=== PATIENT | female | born 1955 | race Hispanic/Latino ===

== ENCOUNTER 2017-09-27 02:06 | Emergency (ER) | payer OTHER ==
[2017-09-27] MEDS ORDERED: Naproxen 500 MG TAB ONE (03:21)
[2017-09-27] MEDS ORDERED: Ondansetron ODT 4 MG TAB ONE (03:21)
[2017-09-27] MEDS ORDERED: Benzonatate 100 MG CAP ONE (03:21)
[2017-09-27] MEDS ORDERED: AMOXicillin 250 MG CAP ONE (03:21)
[2017-09-27] MEDS ORDERED: HYDROcodone/Acetaminophen 10/325 mg Tablet ONE (03:21)
[2017-09-27] MEDS ORDERED: Dexamethasone 4 MG TAB ONE (03:22)
--- NOTE | 2017-09-27 07:54 | RAD ---
RADIOGRAPH CHEST 1 VIEW: HISTORY: A 61-year-old female with dyspnea, cough, congestion, and body aches. FINDINGS: There are no air space densities, pulmonary edema, pneumothorax, or cardiomegaly. The lateral costop hrenic angles are sharp. IMPRESSION: No acute cardiopulmonary findings. [email or web address] [] POS: MITRA
== END 2017-09-27 04:12 | disposition home or self-care (01) ==
LOC: MADERS 02:06
DX: J20.9 Acute bronchitis, unspecified (principal)
CPT/HCPCS: 71045; 94640; J7620; J8540; Q0162

== ENCOUNTER 2019-01-29 10:42 | Outpatient (CLI) | payer OTHER ==
--- NOTE | 2019-01-29 11:19 | RAD ---
2 VIEWS CHEST: Date: 01/29/19 PROVIDED CLINICAL HISTORY: Cough. FINDINGS: Cardiac and mediastinal silhouette is within normal limits. No focal consolidation, pleural fluid, or pneumothorax apparent. IMPRESSION: No evidence for acute cardiopulmonary process. POS: OFF
--- NOTE | 2019-01-29 11:25 | RAD ---
CERVICAL SPINE THREE VIEWS: HISTORY: Cervical radiculopathy. FINDINGS: Moderate degenerative changes are seen at the C5-C6 and C6-C7 levels. Disk narrowing and degenerativ e spurring at these levels. Mild anterior wedging at both these vertebrae. Slight posterior listhes is and posterior spondylosis at the C5-C6 level encroaches into the spinal canal. The disk spaces are otherwise preserved. The vertebral bodies otherwise maintain height and alignmen t. IMPRESSION: Moderate degenerative changes at C5-C6 and C6-C7, as described. POS: MITRA
== END 2019-01-29 10:43 | disposition home or self-care (01) ==
LOC: MADRAD 10:42
PROVIDERS: ATTEND Family Medicine
DX: M47.22 Other spondylosis with radiculopathy, cervical region (principal)
CPT/HCPCS: 71046; 72040